=== PATIENT | female | born 1985 | race Caucasian/White ===

== ENCOUNTER 2019-10-02 15:45 | Inpatient (IN) | payer BC ==
--- NOTE | 2019-10-02 16:17 | ED ---
Psychiatric Complaint - HPI Summary HPI Summary: 34 y/o F with hx bipolar disorder brought to [facility] by her for psychiatric evaluation. Patient's psychiatrist recently took patient off her psychiatric medications and she was doing fine. states patient is having a manic episode. She called her psychiatrist who put her back on her medications. Patient has no complaints at this time. Hx limited by mental illness. - History Of Current Complaint Chief Complaint: EDMentalHealth Time Seen by Provider: 10/02/19 16:00 Hx Obtained From: Family/Wire Splicer - , Other: - nurse Onset/Duration: Still Present Timing: Constant Severity Currently: None Aggravating Factor(s): Nothing Alleviating Factor(s): Nothing - Allergies/Home Medications Allergies/Adverse Reactions: Allergies Allergy/AdvReac Type Severity Reaction Status Date / Time No Known Allergies Allergy Verified 10/02/19 15:52 Home Medications: Home Medications Zolpidem CR (NF) [Ambien CR (NF)] 12.5 mg PO BEDTIME PRN #30 tab MDD 12.5 mg [Rx Confirmed 10/02/19] Ziprasidone * [Geodon (generic) *] 40 mg PO BEDTIME 10/02/19 [History Confirmed 10/02/19] methocarbamoL [Methocarbamol] 750 mg PO TID PRN 10/02/19 [History Confirmed ] PMH/Surg Hx/FS Hx/Imm Hx Endocrine/Hematology History: Denies: Hx Diabetes Cardiovascular History: Denies: Hx Hypertension Psychiatric History: Reports: Hx Inpatient Treatment, Hx Bipolar Disorder, Other Psychiatric Issues/Disorders Infectious Disease History: Unable to Obtain/Confirm Infectious Disease History: Denies: Traveled Outside the [place] in Last 30 Days - Family History Family History: schizophrenia - Social History Alcohol Use: Occasionally Substance Use Type: Reports: None Hx Tobacco Use: No Smoking Status (MU): Never Smoked Tobacco Review of Systems Negative: Fever Positive: Other - manic episode All Other Systems Reviewed And Are Negative: Yes Physical Exam - Summary Physical Exam Summary: General: Well appearing, no distress HEENT: PERRL Cardiovascular: Skin is well perfused Pulmonary: No respiratory distress, no tachypnea Abdomen: Non-distended Skin: Warm, pink, dry MSK: No edema Psych: She is withdrawn and has poor eye contact Neuro: A&Ox3 Triage Information Reviewed: Yes Vital Signs On Initial Exam: Initial Vitals Temp Pulse Resp BP Pulse Ox 99.0 F 87 15 122/82 97 10/02/19 15:49 10/02/19 15:49 10/02/19 15:49 10/02/19 15:49 10/02/19 15:49 Vital Signs Reviewed: Yes Procedures - Sedation Patient Received Moderate/Deep Sedation with Procedure: No Diagnostics - Vital Signs Vital Signs Temp Pulse Resp BP Pulse Ox 10/02/19 15:49 99.0 F 87 15 122/82 97 - Laboratory Result Diagrams: 10/02/19 16:31 10/02/19 16:31 Lab Statement: Any lab studies that have been ordered have been reviewed, and results considered in the medical decision making process. Re-Evaluation - Re-Evaluation First Eval Re-Evaluation Time: 16:15 - patient is medically cleared for MHE Course/Dx - Course Course Of Treatment: Patient taking for mental health clearance for bipolar d/ o. Hx limited by mental illness. Patient has no active medical conditions warrantly further w/u, vital signs are stable. Patient placed in mental health gown and placed on observation. We'll obtain mental health evaluation. - Differential Dx/Clinical Impression Provider Diagnosis: Bipolar disorder - Physician Notifications Discussed Care Of Patient With: Cuco New Time Discussed With Above Provider: 18:35 Instructed by Provider To: Other - Psychiatric doughnut dough mixer reviewed case with Dr. New. Patient to be admitted. Discharge ED - Sign-Out/Discharge Documenting (check all that apply): Patient Departure - Discharge Plan Condition: Stable Disposition: ADMITTED TO [facility] Referrals: No Primary Care Phys,NOPCP [Primary Care Provider] - - Billing Disposition and Condition Condition: STABLE Disposition: Admitted to [facility] - Attestation Statements Document Initiated by Scribe: Yes Documenting Scribe: Ruthy James Provider For Whom Scribe is Documenting (Include Credential): Surekha Zambrano MD Scribe Attestation: Ruthy Deutsch, scribed for Surekha Zambrano MD on 10/02/19 at 1905. Scribe Documentation Reviewed: Yes Provider Attestation: The documentation as recorded by the scribRuthy dumont accurately reflects the service I personally performed and the decisions made by , Surekha Zambrano MD Status of Scribe Document: Viewed
[2019-10-02 16:36] LABS: ABS Lymphocytes 1.3 10^3/ul (1.0-4.8); ABS Monocytes 0.6 10^3/ul (0-0.8); ABS Neutrophils 6.5 10^3/ul (1.5-7.7); Eosinophil % 0.1 %; Hematocrit 39 % (35-47); Hemoglobin 12.9 g/dL (12.0-16.0); Lymphocyte % 15.5 %; Mean Corpuscular HGB Conc 33 g/dL (31-36); Mean Corpuscular Hemoglobin 28 pg (27-31); Mean Corpuscular Volume 84 fL (80-97); Mean Platelet Volume 8.1 fL (7.4-10.4); Platelet Count 293 10^3/uL (150-450); Red Blood Count 4.61 10^6 /uL (3.70-4.87); Red Cell Distribution Width 14 % (10-15); White Blood Count 8.4 10^3/uL (3.5-10.8)
[2019-10-02 17:00] LABS: ALT 11 U/L (7-52); AST 13 U/L (13-39); Albumin 4.7 g/dL (3.2-5.2); Albumin/Globulin Ratio 1.9 (1-3); Alkaline Phosphatase 54 U/L (34-104); Anion Gap 8 mmol/L (2-11); BUN/Creatinine Ratio 17.2 (8-20); Blood Urea Nitrogen 11 mg/dL (6-24); CO2 Carbon Dioxide 25 mmol/L (22-32); Chloride 107 mmol/L (101-111); Globulin 2.5 g/dL (2-4); Glucose 115 mg/dL (70-100); Sodium 140 mmol/L (135-145); Total Protein 7.2 g/dL (6.4-8.9)
[2019-10-02 17:15] LABS: Acetaminophen < 15 mcg/mL; Alcohol < 10 mg/dL (<10); Salicylate < 2.50 mg/dL (<30)
[2019-10-02 17:29] LABS: TSH (Thyroid Stimulating Horm) 0.45 mcIU/mL (0.34-5.60)
[2019-10-02] MEDS ORDERED: Al Hydrox/Mg Hydrox/Simet LIQ* 30 ML UDC PO PRN (17:56)
[2019-10-02] MEDS ORDERED: Acetaminophen TAB* 325 MG PO PRN (17:56)
[2019-10-02] MEDS ORDERED: Ziprasidone * 20 MG CAP (generic Geodon) PO SCH ×2 (21:00)
[2019-10-02] MEDS ORDERED: Zolpidem TAB* 10 MG PO ONE (22:18)
[2019-10-02] MEDS ORDERED: Haloperidol TAB* 5 MG PO PRN (22:40)
[2019-10-02] MEDS ORDERED: diPHENhydraMINE PO* 50 MG ONE (22:45)
[2019-10-02] MEDS ORDERED: Haloperidol TAB* 5 MG ONE (22:45)
[2019-10-02] MEDS: diPHENhydraMINE PO* 50 MG PO PRN (22:47)
--- NOTE | 2019-10-03 00:08 | PROCNOTE ---
- Assessment for Patient Restraint Face to Face Encounter Date: 10/03/19 Face to Face Encounter Time: 00:00 Evaluation of the Patient's Immediate Situation: pt is in seclusion room, appears to be sleeping Patient's Reaction to Intervention: in the past 4 hrs she was treated with Shantel Elena Ambien, Haldol Evaluate Need for Continued Restraint: Continue
[2019-10-03] MEDS ORDERED: Haloperidol TAB* 5 MG PO ONE (02:23)
[2019-10-03] MEDS ORDERED: LORazepam TAB(*) 1 MG PO ONE (02:23)
[2019-10-03] MEDS ORDERED: LORazepam INJ* 2 MG/ML 1 ML VIAL IM ONE (02:23)
[2019-10-03] MEDS ORDERED: Haloperidol INJ IV/IM* 5 MG/ML AMP IM ONE (02:23)
[2019-10-03] MEDS ORDERED: LORazepam TAB(*) 1 MG ONE (02:25)
[2019-10-03] MEDS ORDERED: Haloperidol INJ IV/IM* 5 MG/ML AMP ONE ×2 (02:25→02:44)
[2019-10-03] MEDS ORDERED: LORazepam INJ* 2 MG/ML 1 ML VIAL ONE ×2 (02:26→02:44)
[2019-10-03] MEDS ORDERED: Lorazepam PYXIS KEY ONE ×2 (02:27→02:43)
--- NOTE | 2019-10-03 03:16 | PROCNOTE ---
- Assessment for Patient Restraint Face to Face Encounter Date: 10/03/19 Face to Face Encounter Time: 02:50 Evaluation of the Patient's Immediate Situation: pt is in seclusion, calm , for now. a few minutes prior pulled some of her hair out and was very agitated. Patient's Reaction to Intervention: pt is in seclusion , calm, sitting down Evaluate Need for Continued Restraint: Continue
[2019-10-03] MEDS: Vitamin THERAPEUTIC TAB PO SCH (10:54)
[2019-10-03] MEDS: Ziprasidone * 20 MG CAP (generic Geodon) PO SCH ×2 (14:27→21:24)
--- NOTE | 2019-10-03 18:02 | HP ---
HISTORY AND PHYSICAL: DATE OF ADMISSION: IDENTIFYING DATA: Alisha is a 34-year-old , domiciled, employed female who was referred by her and her [id number] the day before because of increasingly disorganized and erratic behavior in the home setting. She was admitted on emergency status. CHIEF COMPLAINT: "I was acting crazy at home because of the stress of everything that is happening!" HISTORY OF PRESENT ILLNESS: The patient has a documented history of bipolar disorder. Her last admission was here in 2016. 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 She started having difficulty falling asleep. About 4 days ago, she contacted her previous psychiatrist Dr. Darrius Slaughter who recommended that she restart Geodon 40 mg at bedtime and also prescribed her Ambien CR 12.5 mg at bedtime for insomnia. Her difficulty with sleep persisted despite taking the prescribed medications. Yesterday, she recalls that she was agitated at home, she ate soap, she begged her to punch her and knock her out. She was tearful, labile in mood, and made statements about wanting to resolve the COVID-19 epidemic in [employer], at which point her and [id number], who lives close by, decided to drive her to the emergency room of this hospital. During mental health evaluation, she appeared disorganized in her thinking and her behavior, frightened, she tried to elope and she went to hide the imaging room next door. After being admitted, she had periods of agitation requiring the use of p.r.n. medication and seclusion to prevent her from harming herself. She was observed by staff pulling clumps of hair out, she banged on doors and screamed at the top of her lungs. Today, on interview, she is calm, reports feeling rested, she is better organized in her thinking. She is still labile in her mood and somewhat pressured in speech. She talks about the stress of her public health work, daughter's upcoming birthday constitution party (that she had all planned and will probably have to cancel), and relational issues with her . REVIEW OF PSYCHIATRIC SYMPTOMS: She endorses several days of sleeplessness, decreased need for sleep, increased goal directedness, racing thoughts, pressured speech and grandiosity. She denies hallucinations. She endorses excessive worrying, irritability, muscle tension, but denies panic attacks, obsessive thoughts or compulsive rituals. She denies recent or ongoing substance abuse. She denies previous diagnosis of ADHD. She denies symptoms of eating disorder. She does not recall any period of time when she felt depressed for at least 2 weeks. PAST PSYCHIATRIC HISTORY: This is her third lifetime inpatient psychiatric admission. First admission was in 2014 at [facility] in [place] where she was treated for a manic episode and was diagnosed with bipolar I disorder. Her most recent admission was here in this hospital in December 2015, again for a manic episode with psychotic features. she was discharged on Depakote 500 mg twice daily, Geodon 40 mg twice daily, and on Ambien CR 12.5 mg daily. Subsequently, she was under the care of outpatient psychiatrist Dr. Darrius Slaughter who followed her for a period of time and acquiesced to her wish about a year ago to no longer be on medication. She has outpatient therapy with [facility]. She contacted Dr. Slaughter 4 days ago and he instructed her to restart Geodon 40 mg at bedtime and Ambien CR 12.5 mg daily. MEDICATION HISTORY: She has had trials of Zyprexa p.r.n. for agitation and Lorazepam for anxiety in the past. SUICIDE/HOMICIDE HISTORY: The patient denies any history of suicide attempt, of self-injurious behavior or of violence. TRAUMA/ABUSE HISTORY: She denies any history of trauma, abuse, or PTSD symptoms. PAST MEDICAL HISTORY: She denies any active medical problems, any history of head trauma with loss of consciousness, seizures. PAST SURGICAL HISTORY: She had a cyst removed from her back about a week ago, and she still has sutures in place. ALLERGIES: She has no known drug allergies. FAMILY HISTORY: Family history of schizophrenia in an older brother and depression in her younger sister. She is not aware of any family history of completed suicide. PERSONAL SOCIAL HISTORY: She is the second oldest of 3 children from parents who are still living together. She was born in [place], [place], was raised in [place], [place]. 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 She then completed her masters in work environment at [employer]. 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 She her high school friend in 2015. She is currently working as a public health specialist for [employer] and her works for [employer] in [employer] and also as the [employer]. The patient reports periodically strained relationship with the . They have a 3-year-old daughter. REVIEW OF MEDICAL SYMPTOMS: Negative. PHYSICAL EXAMINATION GENERAL: A well-appearing, 34-year-old white female who does not appear to be in any acute physical distress. She is alert and oriented x3. VITAL SIGNS: On admission, blood pressure is 121/98, pulse is 151, respiration 12, temp 97.5. HEENT: Head: Atraumatic, normocephalic, symmetrical. Eyes: PERRLA. Tympanic membranes intact. Sclerae nonicteric. Conjunctivae clear. NECK: Trachea midline, freely mobile. No cervical lymphadenopathy. No nuchal rigidity. LUNGS: Clear to auscultation bilaterally. HEART: Regular rate and rhythm. S1, S2. No murmur, gallops, or rubs. BREAST: Not performed. ABDOMEN: Soft, nontender. No masses, organomegaly, or rebound tenderness. No scars noted. Active bowel sounds in all 4 quadrants. EXTREMITIES: No clubbing, cyanosis, or edema. Varicosities noted. Pulses are equal and adequate in all 4 extremities. GENITALIA: Not performed. RECTAL: Not performed. STRUCTURAL EXAM: The patient was examined in both supine upright positions. No gross AP or lateral asymmetry. Gait and movement are within normal limits. NEUROLOGIC: Cranial nerves II through XII intact. Cerebellar function intact. Muscle strength grade 5/5 in all 4 extremities. SKIN: Skin texture, turgor, and pigmentation are within normal limits. DIAGNOSTIC STUDIES/LAB DATA: Laboratories on admission: CBC, complete metabolic panel, and toxicology screen are all within normal limits. MENTAL EXAMINATION: Finds a 34-year-old white female with brown, chest length hair. She looks unkempt, disheveled in her appearance. She present as cooperative. She is calm. Her affect is labile. Mood is anxious. Thoughts are linear and goal- directed. There is some evidence of grandiosity. She denies auditory or visual hallucinations. Insight and judgment are impaired. Impulse control is fair in this setting. She is alert. She is oriented to time , place, person. Attention, memory, and concentration are all poor. Intelligence estimated to be in normal average range. SUMMARY: Third lifetime inpatient psychiatric admission for this 34-year-old female with previous diagnosis of bipolar I disorder, current outpatient treatment, who was referred by relatives because of increasingly disorganized and erratic behavior in the home setting in the context of psychosocial stressors. Medical history is noncontributory. There is family history of schizophrenia and depression in siblings. No family history of completed suicide. She described pressure from work, being mother of a 3-year-old daughter and periodically strained relationship with as stressors. DIAGNOSTIC IMPRESSIONS: 1. Bipolar I disorder, current episode manic, severe, with psychotic features. 2. Anxiety disorder, unspecified. Rule out Generalized anxiety disorder. TREATMENT PLAN: 1. Admit to mental health unit, 15-minute checks, full code status. Legal status is emergency. 2. Obtain collateral information. 3. I have conferred with Dr. Slaughter, and we have agreed to increasing the Geodon to 40 mg twice daily, to continuing Ambien CR 12.5 at bedtime to regulate her sleeping and to subsequently reassess for the need to restart Depakote. 4. Provide her with structure and support in therapeutic milieu. 5. Discharge planning: A 34-year-old female admitted for treatment of acute marjan with psychotic features. She merits inpatient level of care for observation, evaluation, and treatment. We will refer her back to her previous outpatient psychiatric providers when she is psychiatrically stabilized and ready for discharge. [id number]/[facility] #: [id number] [facility]ACK HOSPITALRefugio
[2019-10-04] MEDS: Vitamin THERAPEUTIC TAB PO SCH (09:23)
[2019-10-04] MEDS: Ziprasidone * 20 MG CAP (generic Geodon) PO SCH ×2 (09:23→20:57)
[2019-10-04] MEDS: diPHENhydraMINE PO* 50 MG PO PRN (20:59)
[2019-10-05] MEDS: diPHENhydraMINE PO* 50 MG PO PRN (00:54)
[2019-10-05] MEDS: Ziprasidone * 20 MG CAP (generic Geodon) PO SCH (08:26)
[2019-10-05] MEDS: Vitamin THERAPEUTIC TAB PO SCH (08:26)
[2019-10-05] MEDS ORDERED: Cholecalciferol TAB* 1000 UNITS PO ONE (13:41)
[2019-10-05] MEDS ORDERED: Ferrous Gluconate TAB* 324 MG TAB PO ONE (13:42)
--- NOTE | 2019-10-05 14:03 | PN ---
Subjective - Subjective Date of Service: 10/05/19 Service Type: 07175 Hosp care 35 min high complexity Subjective: Alisha discusses the events leading up to her admission which include stress from work, which has been increasing in severity due to COVID-19. She works in [employer] and there were plans being made that she would potentially have to take on-call hours. Even as she was preparing for that, she started having trouble sleeping. In the past, she had been taking Geodon and zolpidem. These agents did not work for her to sleep and she became psychotic. She is not ready to process this psychosis and would prefer to speak to her psychotherapist, Whitney Marshall. She is relieved that she has gotten the week off of work and has plans to try to not work on COVID-19 and instead work on other infectious diseases and rabies cases and potentially reduce her hours as her 's ramp up. Objective - General Observations Appearance: Well Groomed Appears Stated Age: Yes Stature: WNL Posture: WNL Eye Contact: Average Behavior/Activity: WNL, Accelerated - Interaction Observations Attitude Towards Examiner: Cooperative, Anxious, Defensive Stated Mood: Dysphoric, Anxious Affect: Bright Speech Pattern/Tone: Clear, Appropriate, Quiet Volume Thought Process: Coherent, Goal Directed Thought Content: Preoccupation/Ruminations, Self-Deprecatory Hallucination Type: None Delusion Type: None - Cognitive Function Orientation: A&O x 4 Level of Consciousness: Awake, Alert, Appropriate Cognition: WNL Estimated Intelligence: Normal Judgment Within Normal Limits: No Ability to Make Reasonable Decisions: Mildly Impaired - Medication Compliance Cooperative with Inpatient Medication Regimen: Yes - Group Participation Participates in Group Activities: Yes Assessment - Assessment Merits Inpatient Hospitalization: For Immediate Safety Inpatient DSM-V Dx: F31.2 Clinical Impression: Alisha is a 34-year-old woman diagnosed with bipolar disorder, manic, severe , with psychotic features who came to the hospital with complaints of psychosis and lack of sleep, and she required restraint and medication over objection upon arrival to this unit. She has since had sleep and some medications and has improved significantly. Plan - Plan Treatment Plan: Name: ALISHA MOORE Birthdate: 1985 [id number] We will move the BID Geodon 40 mg to 80 mg at bedtime. Ambien stays the same as outpatient. Start PRN Ativan 1 mg at bedtime to reduce racing thoughts, help with sleep, and help to reduce marjan. In the outpatient, I plan to provide #15 tablets that she can take 0.5-1 tablet at bedtime during times of impending marjan. Continued Medication Management: Different Medication Medications: Current Medications Acetaminophen (Tylenol Tab*) 650 mg PO Q4H PRN PRN Reason: for pain; or Temp >101 F Al Hydrox/Mg Hydrox/Simethicone (Maalox Plus*) 30 ml PO Q4H PRN PRN Reason: INDIGESTION Diphenhydramine HCl (Benadryl Po*) 50 mg PO Q4H PRN PRN Reason: AGITATION Last Admin: 10/05/19 00:54 Dose: 50 mg Haloperidol (Haldol Tab*) 5 mg PO Q4H PRN PRN Reason: AGITATION/ANXIETY Last Admin: 10/02/19 22:46 Dose: 5 mg Lorazepam (Ativan Tab(*)) 1 mg PO BEDTIME CHANA Multivitamins (Theragran Tab*) 1 tab PO DAILY CHANA Last Admin: 10/05/19 08:26 Dose: 1 tab Ziprasidone (Geodon (Generic) *) 80 mg PO BEDTIME CHANA - Discharge Plan Discharge Plan: Outpatient Follow Up Outpatient Program: Private Clinician(s)
[2019-10-05] MEDS ORDERED: LORazepam TAB(*) 1 MG PO SCH (21:00)
[2019-10-05] MEDS ORDERED: Ziprasidone * 20 MG CAP (generic Geodon) PO SCH (21:00)
[2019-10-06] MEDS: Vitamin THERAPEUTIC TAB PO SCH (08:22)
[2019-10-06] MEDS ORDERED: Ferrous Gluconate TAB* 324 MG TAB PO ONE (08:23)
[2019-10-06] MEDS ORDERED: Cholecalciferol TAB* 1000 UNITS PO ONE (08:23)
[2019-10-06 10:09] VITALS: BP 110/70
--- NOTE | 2019-10-06 11:01 | PN ---
BSU: Group Therapy Note - Service Type Service Type: 12616 Group Psychotherapy - Cognitive Behavioral Group Therapy ( CBT):Patient was attentive and participatory in CBT programming this morning, and remained in good behavioral control. Patient expressed positive insights regarding relevant treatment interventions and goals.
[2019-10-06 12:12] LABS: HDL Cholesterol 45.2 mg/dL
--- NOTE | 2019-10-07 16:11 | DS ---
DISCHARGE SUMMARY: DATE OF ADMISSION: 10/02/19 DATE OF DISCHARGE: 10/06/19 PROVIDER: Rae Barron NP, in Psychiatry. SUPERVISING PHYSICIAN: Dr. Cuco New* (Rae Barron NP, in Psychiatry) . DIAGNOSIS: Bipolar 1 disorder, current episode manic with psychotic features. CONDITION AT THE TIME OF DISCHARGE: Improved, psychiatrically cleared, stable. Participated in groups and was social with peers. Her is agreeable to discharge as is Alisha. She has done well here psychiatrically. She tolerated the addition of medications such as Ativan and the increase of Geodon. She will be attending outpatient treatment with private therapist Whitney Marshall and Dr. Darrius Slaughter. MENTAL STATUS EXAMINATION: At the time of discharge, Alisha is calm, cooperative, and makes good eye contact. She is alert and oriented x4. Her grooming is excellent. Her speech pace is normal. Her thought processes are logical. She is not psychotic or delusional. She denies AH, VH, SI, and HI. Insight and judgment are good. She is willing to follow up and she is urged to see her therapist. DISCHARGE INSTRUCTIONS TO THE PATIENT: A. Medications: 1. Lorazepam 1 mg at bedtime p.r.n. anxiety or insomnia, dispensed 15. 2. Ziprasidone 80 mg capsule at bedtime, dispensed 30. 3. Ambien CR 12.5 mg at bedtime p.r.n. insomnia. B. Diet is regular. C. Activities: As tolerated. She is a nonsmoker. There are no studies pending at the time of discharge, although relevant studies are hemoglobin A1c 5.4, triglycerides 162, cholesterol 144, LDL cholesterol 66, HDL cholesterol 45.2. These results were not available at the moment that Alisha was discharged. D. Followup care: She has appointment with Dr. Darrius Slaughter on 10/07/19, at 6 p.m. and she has an appointment with Whitney Marshall LCSW, on 10/07/19, at 3:30 p.m. E. Disposition: She is being discharged to her home with her and her child. F. Substance abuse followup is not indicated. HOSPITAL COURSE: Part A: Chief complaint: "I was acting crazy at home because of the stress of everything that is happening!" The patient has a documented history of bipolar disorder. Her last admission was here in 2016. 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 She started having difficulty falling asleep. About 4 days ago, she contacted her previous psychiatrist, Dr. Darrius Slaughter, who recommended that she restart Geodon 40 at bedtime and also prescribed her Ambien CR 12.5 at bedtime for insomnia. Her difficulty with sleep persisted despite taking the prescribed medications. Yesterday, she recalls that she was agitated at home, she begged her to punch her and knock her out. She was tearful, labile in mood, and made statements about wanting to resolve the COVID-19 epidemic in [facility] [employer], at which point her and [id number], who lives close by, decided to drive her to the emergency room of this hospital. During the mental health evaluation, she appeared disorganized in her thinking and her behavior, frightened. She tried to elope and she went to hide in the imaging room next door. After being admitted, she had periods of agitation requiring the use of p.r.n. medications and seclusion to prevent her from harming herself. She was observed by staff pulling clumps of hair out. She banged on doors and screamed at the top of her lungs. Today, on interview, she is calm. Reports feeling rested. She is better organized in her thinking. She is still labile in her mood and somewhat pressured in speech. She talks about the stress of her public health work, her daughter's upcoming birthday libertarian (that she had all planned and will probably have to cancel), and relationship issues with her . Part B: Psychiatric treatment was rendered. Alisha was admitted to the adult behavioral unit and placed on 15-minute checks for safety. She did advance to 30- minute checks and staff pass privileges. She was safe on all checks. She did well on the unit. She went to groups and interacted with peers well. She tolerated the medication changes including the increased dose of Geodon: she took 1 morning and found to be extremely sedating. Nevertheless , she persisted in continuing to be a part of the milieu and agreed to the additional dose being taken at bedtime for a total of 80 mg at bedtime. On 10/05/19, Alisha discussed the events leading up to her admission, which included stress from work which has been increasing in severity due to COVID- 19. She works in [employer] and there were plans being made that she would potentially have to take on-call hours. Even as she was preparing for that, she started having trouble sleeping. In the past, she had been taking Geodon and zolpidem. These agents did not work for her to sleep at this time and she became psychotic. She was not ready to process the psychosis and would prefer to speak with her psychotherapist, Whitney Marshall. She is relieved she has gotten this week off of work and has plans to try to not work on COVID-19 and instead work on other infectious diseases and rabies cases and potentially reduce her hours as her 's ramp up. She was discharged on 10/06/19 and was bright, charming, quite easy to talk to. She used allison and humor and was eager to know how to get in contact with her therapist and psychiatrist (by phone or in person) since the COVID-19 issue is so pervasive at this time. Because she is on Geodon and she has only begun taking it, this would be a baseline value. Her hemoglobin A1c on 10/06/19 at 11:35 is 5.4, triglycerides are 162, cholesterol 144, LDL cholesterol 66, HDL cholesterol 45.2. Incidentally, her TSH is 0.45. There was no opportunity to meet with her as there are no visitors allowed in the hospital. No consults were entered for her. She is much improved. She is future oriented and eager to see her child. RAE BARRON, ASHER [id number]/[facility] #: [id number] LISBETH
== END 2019-10-06 14:30 | disposition home or self-care (01) | DRG 753 ==
LOC: ED 15:45 → BSU 17:57 → ED 19:40
PROVIDERS: ADMIT Psychiatry & Neurology Psychiatry; ATTEND Psychiatry & Neurology Psychiatry
DX: F31.2 Bipolar disorder, current episode manic severe with psychotic features (principal); Z81.8 Family history of other mental and behavioral disorders
CPT/HCPCS: 36415; 80053; 80061; 80320; 80329; 83036; 84443; 85025; 90853; 99222; 99233; 99238; 99285; A9270-GY; G0480; J1630; J2060